=== PATIENT | male | born 1965 | race Caucasian/White ===

== ENCOUNTER 2022-07-28 09:26 | Inpatient (IN) ==
[2022-07-28] MEDS ORDERED: ONDANSETRON 4 MG/2 ML VIAL IV STA (09:47)
[2022-07-28] MEDS ORDERED: MORPHINE 10 MG/1 ML VIAL IV STA (09:47)
[2022-07-28] MEDS ORDERED: ASPIRIN 325 MG TABLET PO STA (09:47)
[2022-07-28 10:08] LABS: Basophils # 0.1 10*3/uL (0.0-0.2); Basophils % 0.4 % (0.0-0.8); Eosinophils # 0.1 10*3/uL (0.0-0.87); Eosinophils % 0.9 % (0.00-10.9); Hematocrit 49.3 VOL% (42.0-52.0); Hemoglobin 17.6 GM/DL (14.0-18.0); Immature Granulocytes % 0.4 %; Immature Granulocytes Absolute 0.07 #; Lymphocytes # 2.5 10*3/uL (1.4-4.0); Lymphocytes % 15.3 % (21.2-54.2); Mean Corpuscular HGB Conc 35.7 GM/DL (32-36); Mean Platelet Volume 8.3 FL (9.6-12.0); Monocytes # 1.2 10*3/uL (0.11-0.8); Monocytes % 7.5 % (1.7-12.7); Neutrophils % 75.5 % (38.7-73.9); Platelet Count 338 T/CUMM (130-400); Red Blood Count 5.48 MC/CUMM (3.8-5.5); Red Cell Distribution Width 11.8 % (9.3-17.3)
[2022-07-28] MEDS ORDERED: MORPHINE 2 MG/1 ML SYRINGE ONE (10:23)
[2022-07-28 10:28] LABS: Albumin 4.2 G/DL (3.4-5.0); Bilirubin,Total 1.1 MG/DL (0.20-1.00); Calcium 9.8 MG/DL (8.5-10.1); Osmolality,Calculated 274.8 MOS/KG (273-304); Potassium 3.5 MMOL/L (3.5-5.1); Total Protein 7.5 G/DL (6.4-8.2)
[2022-07-28] MEDS ORDERED: SODIUM CHLORIDE 0.9% 1,000 ML IV STA ×2 (11:11→13:00)
[2022-07-28] MEDS ORDERED: HYDROmorphone 1 MG/1 ML SYRINGE ONE (11:42)
[2022-07-28] MEDS ORDERED: DEXTROSE 10% 250 ML BAG IV PRN (11:55)
[2022-07-28] MEDS ORDERED: GLUCAGON 1 MG VIAL IM PRN (11:55)
[2022-07-28] MEDS ORDERED: busPIRone 10 MG TABLET PO PRN (12:17)
[2022-07-28] MEDS ORDERED: HYDROmorphone 1 MG/1 ML SYRINGE IV PRN (12:25)
[2022-07-28 12:26] LABS: Risk Ratio 5.41; Thyroid Stimulating Hormone 2.05 uIU/ml (0.358-3.74); VLDL Cholesterol 62.2 MG/DL
[2022-07-28] MEDS ORDERED: diphenhydrAMINE 50 MG/1 ML VIAL IV PRN (12:26)
[2022-07-28] MEDS: HYDROmorphone 1 MG/1 ML SYRINGE IV PRN ×4 (13:23→22:11)
[2022-07-28] MEDS: LACTATED RINGERS 1,000 ML IV SCH ×3 (14:46→23:07)
[2022-07-28] MEDS: ENOXAPARIN 40 MG/0.4 ML SYRINGE SUBCUT SCH (14:46)
[2022-07-28] MEDS: INSULIN LISPRO 100 UNIT/ML SUBCUT SCH ×3 (15:45→23:36)
[2022-07-28] MEDS ORDERED: PNEUMOCOCCAL VACCINE (13 VALENT) 0.5 ML SYRINGE IM ONE (16:36)
[2022-07-28] MEDS: ONDANSETRON 4 MG/2 ML VIAL IV PRN (16:50)
[2022-07-28] MEDS ORDERED: NALOXONE 0.4 MG/ML VIAL IV PRN (18:02)
[2022-07-28] MEDS ORDERED: PROMETHAZINE 25 MG/1 ML VIAL IM PRN (18:34)
[2022-07-28] MEDS: cefTRIAXone 2,000 MG in SODIUM CHLORIDE 0.9% 100 ML IV SCH (19:58)
[2022-07-29] MEDS: LACTATED RINGERS 1,000 ML IV SCH ×8 (02:18→23:40)
[2022-07-29 02:59] LABS: Basophils % 0.1 % (0.0-0.8); Hematocrit 48.6 VOL% (42.0-52.0); Immature Granulocytes % 0.5 %; Immature Granulocytes Absolute 0.08 #; Lymphocytes # 0.7 10*3/uL (1.4-4.0); Lymphocytes % 4.1 % (21.2-54.2); Mean Corpuscular Volume 92.2 FL (87-102); Mean Platelet Volume 8.3 FL (9.6-12.0); Monocytes # 1.1 10*3/uL (0.11-0.8); Monocytes % 6.4 % (1.7-12.7); Neutrophils % 88.9 % (38.7-73.9); Platelet Count 247 T/CUMM (130-400); Red Blood Count 5.27 MC/CUMM (3.8-5.5); Red Cell Distribution Width 12.4 % (9.3-17.3); White Blood Count 16.4 T/CUMM (4-12)
[2022-07-29 03:19] LABS: Albumin 3.1 G/DL (3.4-5.0); Bilirubin,Total 1.8 MG/DL (0.20-1.00); Calcium 7.7 MG/DL (8.5-10.1); Osmolality,Calculated 273.8 MOS/KG (273-304); Potassium 4.5 MMOL/L (3.5-5.1)
[2022-07-29 03:20] LABS: Lymphocytes 3 % (20-55); Platelet Estimate Adequate; Total Cells Counted 100
[2022-07-29] MEDS: INSULIN LISPRO 100 UNIT/ML SUBCUT SCH ×6 (03:30→19:51)
[2022-07-29] MEDS ORDERED: MAGNESIUM SULF RIDER 2 GM/50 ML PREMIX IV ONE (03:38)
[2022-07-29] MEDS: HYDROmorphone 1 MG/1 ML SYRINGE IV PRN ×8 (03:52→22:48)
[2022-07-29] MEDS ORDERED: GENTAMICIN INJ 80 MG/50 ML PREMIX IV ONE (06:00)
[2022-07-29] MEDS: PANTOPRAZOLE 40 MG VIAL IV SCH (08:05)
[2022-07-29] MEDS ORDERED: hydrALAZINE 20 MG/1 ML VIAL IV PRN ×2 (08:13→08:54)
[2022-07-29] MEDS ORDERED: FLUTICASONE 50 MCG NASAL SPRAY 16 GM BOTTLE BOTH NARES PRN (08:42)
[2022-07-29] MEDS: ASCORBIC ACID 500 MG TABLET PO SCH (08:56)
[2022-07-29] MEDS: MULTIVITAMIN (CENTRUM) TABLET PO SCH (08:56)
[2022-07-29] MEDS: CHOLECALCIFEROL 1,000 UNIT TABLET PO SCH (08:57)
[2022-07-29] MEDS ORDERED: SUPER BEETS PO SCH (09:00)
[2022-07-29] MEDS ORDERED: NON-FORMULARY MEDICATION (Turmeric 400 mg Capsule) PO SCH (09:00)
[2022-07-29] MEDS ORDERED: ZINC GLUCONATE 50 MG TABLET PO SCH (09:00)
[2022-07-29] MEDS: LOSARTAN 50 MG TABLET PO SCH (13:00)
[2022-07-29] MEDS: cefTRIAXone 2,000 MG in SODIUM CHLORIDE 0.9% 100 ML IV SCH (19:50)
[2022-07-29 20:21] LABS: Bacteria,Urine Occasional /HPF (Few); Mucus,Urine Many /LPF (Occasional); RBC,Urine 30-35 /HPF (0-4); Squamous Epithelial Cell,Urine Occasional /HPF (0-10)
[2022-07-29 20:22] LABS: Bilirubin,Urine Negative (Negative); Blood, Urine Small mg/dL (Negative); Glucose,Urine (UA) Negative (Negative); Ketones,Urine Negative (Negative); Nitrite,Urine Negative (Negative); Protein,Urine 100 mg/dL (Negative); Urine Appearance Clear (Clear); Urine Color Dark yellow (Yellow); Urine Specific Gravity >= 1.030 (1.001-1.035); Urine Urobilinogen 0.2 eU/dL (<2.0)
[2022-07-29 20:28] LABS: Barbiturates Screen,Urine Negative (Negative); Benzodiazepines Screen,Urine Negative (Negative); Cannabinoid Screen,Urine Negative (Negative); Opiate Screen,Urine Positive (Negative); Phencyclidine Screen,Urine Negative (Negative)
[2022-07-29] MEDS ORDERED: NEBIVOLOL 10 MG TABLET PO SCH (21:00)
[2022-07-30] MEDS: INSULIN LISPRO 100 UNIT/ML SUBCUT SCH ×6 (00:04→20:14)
[2022-07-30] MEDS: HYDROmorphone 1 MG/1 ML SYRINGE IV PRN ×3 (00:57→06:25)
[2022-07-30] MEDS: LACTATED RINGERS 1,000 ML IV SCH ×6 (03:55→19:55)
[2022-07-30 06:06] LABS: Basophils % 0.1 % (0.0-0.8); Eosinophils % 0.1 % (0.00-10.9); Hematocrit 42.6 VOL% (42.0-52.0); Hemoglobin 14.5 GM/DL (14.0-18.0); Immature Granulocytes % 0.6 %; Immature Granulocytes Absolute 0.11 #; Lymphocytes % 5.2 % (21.2-54.2); Mean Corpuscular Volume 94.5 FL (87-102); Mean Platelet Volume 8.4 FL (9.6-12.0); Monocytes # 1.2 10*3/uL (0.11-0.8); Monocytes % 6.1 % (1.7-12.7); Neutrophils % 87.9 % (38.7-73.9); Platelet Count 198 T/CUMM (130-400); Red Blood Count 4.51 MC/CUMM (3.8-5.5); Red Cell Distribution Width 12.6 % (9.3-17.3); White Blood Count 18.7 T/CUMM (4-12)
[2022-07-30 06:19] LABS: INR 1.3
[2022-07-30 06:22] LABS: Albumin 2.3 G/DL (3.4-5.0); Bilirubin,Total 3.1 MG/DL (0.20-1.00); Calcium 6.3 MG/DL (8.5-10.1); Potassium 4.1 MMOL/L (3.5-5.1); Total Protein 5.4 G/DL (6.4-8.2)
[2022-07-30] MEDS ORDERED: INDOMETHACIN SUPP 50 MG SUPP RECTAL ONE ×2 (06:30→08:00)
[2022-07-30] MEDS ORDERED: MIDAZOLAM 2 MG/2 ML VIAL ONE (06:39)
[2022-07-30] MEDS ORDERED: ROCURONIUM 50 MG/5 ML VIAL IV ONE (06:39)
[2022-07-30] MEDS ORDERED: fentaNYL 100 MCG/2 ML VIAL ONE ×2 (06:39→08:07)
[2022-07-30] MEDS ORDERED: propofoL 200 MG/20 ML VIAL IV ONE (06:39)
[2022-07-30] MEDS ORDERED: SUCCINYLCHOLINE 200 MG/10 ML VIAL ONE (06:39)
[2022-07-30] MEDS ORDERED: LIDOCAINE 2% 5 ML VIAL ONE (06:39)
[2022-07-30] MEDS ORDERED: ONDANSETRON 4 MG/2 ML VIAL ONE (07:18)
[2022-07-30] MEDS ORDERED: ePHEDrine 50 MG/ML VIAL ONE (08:16)
[2022-07-30] MEDS ORDERED: PHENYLEPHRINE 10 MG/1 ML VIAL IV ONE (08:33)
[2022-07-30] MEDS ORDERED: NEOSTIGMINE 10 MG/10 ML VIAL ONE (08:59)
[2022-07-30] MEDS ORDERED: GLYCOPYRROLATE 0.4 MG/2 ML VIAL ONE (08:59)
[2022-07-30] MEDS ORDERED: SEVOFLURANE 1 UNIT/15 MINUTE INH ONE (09:22)
[2022-07-30] MEDS ORDERED: SODIUM CHLORIDE 0.9% 250 ML IV ONE (09:22)
[2022-07-30] MEDS ORDERED: DEXAMETHASONE 4 MG/1 ML VIAL ONE (09:22)
[2022-07-30 11:48] LABS: Risk Ratio 4.76; VLDL Cholesterol 16.8 MG/DL
[2022-07-30] MEDS: PANTOPRAZOLE 40 MG VIAL IV SCH (12:58)
[2022-07-30] MEDS: LOSARTAN 50 MG TABLET PO SCH (12:58)
[2022-07-30] MEDS: OMEGA 3 ACID ETHYL ESTERS 1 GM CAPSULE PO SCH ×2 (12:58→20:19)
[2022-07-30] MEDS: cefTRIAXone 2,000 MG in SODIUM CHLORIDE 0.9% 100 ML IV SCH (20:19)
[2022-07-31] MEDS: LACTATED RINGERS 1,000 ML IV SCH ×4 (00:02→14:49)
[2022-07-31] MEDS: INSULIN LISPRO 100 UNIT/ML SUBCUT SCH ×6 (00:02→20:00)
[2022-07-31 06:12] LABS: Basophils % 0.1 % (0.0-0.8); Hemoglobin 12.3 GM/DL (14.0-18.0); Immature Granulocytes % 0.4 %; Immature Granulocytes Absolute 0.05 #; Lymphocytes # 0.6 10*3/uL (1.4-4.0); Lymphocytes % 4.5 % (21.2-54.2); Mean Corpuscular HGB Conc 34.2 GM/DL (32-36); Mean Corpuscular Volume 95.5 FL (87-102); Mean Platelet Volume 8.6 FL (9.6-12.0); Monocytes # 0.7 10*3/uL (0.11-0.8); Monocytes % 5.7 % (1.7-12.7); Neutrophils % 89.3 % (38.7-73.9); Platelet Count 162 T/CUMM (130-400); Red Blood Count 3.77 MC/CUMM (3.8-5.5); Red Cell Distribution Width 12.5 % (9.3-17.3); White Blood Count 12.2 T/CUMM (4-12)
[2022-07-31 07:41] LABS: Calcium 6.2 MG/DL (8.5-10.1); Osmolality,Calculated 270.1 MOS/KG (273-304); Potassium 3.8 MMOL/L (3.5-5.1)
[2022-07-31 07:45] LABS: Lymphocytes 5 % (20-55)
[2022-07-31 07:46] LABS: Platelet Estimate Normal; Total Cells Counted 100
[2022-07-31 08:24] LABS: Albumin 2.4 G/DL (3.4-5.0); Bilirubin,Direct 0.31 MG/DL (0.0-0.20); Bilirubin,Indirect 2.6 MG/DL (0.0-1.0); Bilirubin,Total 2.9 MG/DL (0.20-1.00); Total Protein 5.7 G/DL (6.4-8.2)
[2022-07-31] MEDS: LOSARTAN 50 MG TABLET PO SCH (08:46)
[2022-07-31] MEDS: OMEGA 3 ACID ETHYL ESTERS 1 GM CAPSULE PO SCH ×2 (08:46→21:00)
[2022-07-31] MEDS: PANTOPRAZOLE 40 MG VIAL IV SCH (08:46)
[2022-07-31] MEDS: ENOXAPARIN 40 MG/0.4 ML SYRINGE SUBCUT SCH (11:46)
[2022-07-31] MEDS: cefTRIAXone 2,000 MG in SODIUM CHLORIDE 0.9% 100 ML IV SCH (19:55)
[2022-08-01] MEDS: INSULIN LISPRO 100 UNIT/ML SUBCUT SCH ×6 (00:03→19:54)
[2022-08-01 06:58] LABS: Albumin 2.4 G/DL (3.4-5.0); Bilirubin,Total 2.7 MG/DL (0.20-1.00); Calcium 6.5 MG/DL (8.5-10.1); Osmolality,Calculated 260.7 MOS/KG (273-304); Potassium 3.7 MMOL/L (3.5-5.1); Total Protein 5.7 G/DL (6.4-8.2)
[2022-08-01 07:37] LABS: Basophils % 0.2 % (0.0-0.8); Hematocrit 34.3 VOL% (42.0-52.0); Hemoglobin 11.8 GM/DL (14.0-18.0); Immature Granulocytes % 0.6 %; Immature Granulocytes Absolute 0.08 #; Lymphocytes # 0.6 10*3/uL (1.4-4.0); Lymphocytes % 4.9 % (21.2-54.2); Mean Corpuscular HGB Conc 34.4 GM/DL (32-36); Mean Platelet Volume 8.7 FL (9.6-12.0); Monocytes # 1.1 10*3/uL (0.11-0.8); Monocytes % 8.7 % (1.7-12.7); Neutrophils % 85.6 % (38.7-73.9); Platelet Count 221 T/CUMM (130-400); Red Blood Count 3.61 MC/CUMM (3.8-5.5); Red Cell Distribution Width 12.3 % (9.3-17.3); White Blood Count 12.4 T/CUMM (4-12)
[2022-08-01 08:08] LABS: Anisocytosis 1+; Band Neutrophils 1 % (0-10); Platelet Estimate Normal; Polychromasia Slight; Total Cells Counted 100
[2022-08-01] MEDS: ASCORBIC ACID 500 MG TABLET PO SCH (09:21)
[2022-08-01] MEDS: CHOLECALCIFEROL 1,000 UNIT TABLET PO SCH (09:21)
[2022-08-01] MEDS: MULTIVITAMIN (CENTRUM) TABLET PO SCH (09:21)
[2022-08-01] MEDS: OMEGA 3 ACID ETHYL ESTERS 1 GM CAPSULE PO SCH ×2 (09:21→21:51)
[2022-08-01] MEDS: LOSARTAN 50 MG TABLET PO SCH (09:21)
[2022-08-01] MEDS: PANTOPRAZOLE 40 MG VIAL IV SCH (09:21)
[2022-08-01] MEDS: ENOXAPARIN 40 MG/0.4 ML SYRINGE SUBCUT SCH (12:01)
[2022-08-01] MEDS: cefTRIAXone 2,000 MG in SODIUM CHLORIDE 0.9% 100 ML IV SCH (21:51)
[2022-08-01] MEDS: MAGNESIUM HYDROXIDE SUSP 30 ML UDCUP PO SCH (21:51)
[2022-08-02] MEDS: INSULIN LISPRO 100 UNIT/ML SUBCUT SCH ×6 (00:11→19:58)
[2022-08-02] MEDS: MAGNESIUM HYDROXIDE SUSP 30 ML UDCUP PO SCH ×2 (02:01→09:34)
[2022-08-02 05:53] LABS: Basophils % 0.2 % (0.0-0.8); Eosinophils % 0.1 % (0.00-10.9); Hematocrit 34.1 VOL% (42.0-52.0); Hemoglobin 11.8 GM/DL (14.0-18.0); Immature Granulocytes % 1.3 %; Immature Granulocytes Absolute 0.18 #; Lymphocytes # 0.6 10*3/uL (1.4-4.0); Lymphocytes % 4.4 % (21.2-54.2); Mean Corpuscular HGB Conc 34.6 GM/DL (32-36); Mean Corpuscular Volume 92.7 FL (87-102); Mean Platelet Volume 8.4 FL (9.6-12.0); Monocytes # 1.3 10*3/uL (0.11-0.8); Monocytes % 9.4 % (1.7-12.7); Neutrophils % 84.6 % (38.7-73.9); Platelet Count 230 T/CUMM (130-400); Red Blood Count 3.68 MC/CUMM (3.8-5.5); Red Cell Distribution Width 12.3 % (9.3-17.3); White Blood Count 14.2 T/CUMM (4-12)
[2022-08-02 06:09] LABS: Albumin 2.4 G/DL (3.4-5.0); Bilirubin,Total 2.4 MG/DL (0.20-1.00); Calcium 7.1 MG/DL (8.5-10.1); Osmolality,Calculated 253.2 MOS/KG (273-304); Potassium 3.3 MMOL/L (3.5-5.1); Total Protein 6.1 G/DL (6.4-8.2)
[2022-08-02 06:13] LABS: Band Neutrophils 1 % (0-10); Lymphocytes 2 % (20-55); Platelet Estimate Adequate; Total Cells Counted 100
[2022-08-02] MEDS ORDERED: POTASSIUM CHLORIDE 20 MEQ TABLET PO ONE (07:44)
[2022-08-02] MEDS: LOSARTAN 50 MG TABLET PO SCH (08:44)
[2022-08-02] MEDS: OMEGA 3 ACID ETHYL ESTERS 1 GM CAPSULE PO SCH ×2 (08:44→20:31)
[2022-08-02] MEDS: PANTOPRAZOLE 40 MG VIAL IV SCH (08:44)
[2022-08-02] MEDS: ASCORBIC ACID 500 MG TABLET PO SCH (08:44)
[2022-08-02] MEDS: MULTIVITAMIN (CENTRUM) TABLET PO SCH (08:44)
[2022-08-02] MEDS: CHOLECALCIFEROL 1,000 UNIT TABLET PO SCH (08:44)
[2022-08-02] MEDS ORDERED: chlorproMAZINE INJ 25 MG in SODIUM CHLORIDE 0.9% 100 ML IV PRN (09:10)
[2022-08-02] MEDS ORDERED: chlorproMAZINE 25 MG/1 ML AMP IM PRN (09:13)
[2022-08-02] MEDS ORDERED: SODIUM CHLORIDE 0.9% 500 ML IV ONE (09:14)
[2022-08-02] MEDS: POLYETHYLENE GLYCOL POWDER 17 GM PACK PO SCH (12:15)
[2022-08-02] MEDS ORDERED: SODIUM PHOSPHATE ENEMA 133 ML BOTTLE RECTAL ONE (13:00)
[2022-08-02] MEDS: cefTRIAXone 2,000 MG in SODIUM CHLORIDE 0.9% 100 ML IV SCH (21:08)
[2022-08-02] MEDS: ENOXAPARIN 40 MG/0.4 ML SYRINGE SUBCUT SCH (21:11)
[2022-08-03] MEDS: INSULIN LISPRO 100 UNIT/ML SUBCUT SCH ×4 (00:05→12:17)
[2022-08-03] MEDS: PANTOPRAZOLE 40 MG TABLET PO SCH (06:01)
[2022-08-03 06:20] LABS: Basophils % 0.3 % (0.0-0.8); Eosinophils % 0.2 % (0.00-10.9); Hematocrit 33.3 VOL% (42.0-52.0); Hemoglobin 11.4 GM/DL (14.0-18.0); Immature Granulocytes % 3.8 %; Immature Granulocytes Absolute 0.59 #; Lymphocytes # 0.6 10*3/uL (1.4-4.0); Lymphocytes % 4.1 % (21.2-54.2); Mean Corpuscular HGB Conc 34.2 GM/DL (32-36); Mean Corpuscular Volume 93.3 FL (87-102); Mean Platelet Volume 8.6 FL (9.6-12.0); Monocytes # 1.5 10*3/uL (0.11-0.8); Monocytes % 9.5 % (1.7-12.7); Neutrophils % 82.1 % (38.7-73.9); Platelet Count 234 T/CUMM (130-400); Red Blood Count 3.57 MC/CUMM (3.8-5.5); Red Cell Distribution Width 12.3 % (9.3-17.3); White Blood Count 15.5 T/CUMM (4-12)
[2022-08-03 06:37] LABS: Albumin 2.3 G/DL (3.4-5.0); Calcium 7.2 MG/DL (8.5-10.1); Osmolality,Calculated 254.1 MOS/KG (273-304); Potassium 4.1 MMOL/L (3.5-5.1); Total Protein 5.8 G/DL (6.4-8.2)
[2022-08-03 06:39] LABS: Band Neutrophils 4 % (0-10); Lymphocytes 1 % (20-55); Total Cells Counted 100
[2022-08-03 06:40] LABS: Platelet Estimate Adequate
[2022-08-03] MEDS: SODIUM CHLORIDE 0.9% 1,000 ML IV SCH ×2 (09:38→23:30)
[2022-08-03] MEDS: LOSARTAN 50 MG TABLET PO SCH (09:38)
[2022-08-03] MEDS: MULTIVITAMIN (CENTRUM) TABLET PO SCH (09:38)
[2022-08-03] MEDS: OMEGA 3 ACID ETHYL ESTERS 1 GM CAPSULE PO SCH ×2 (09:39→20:52)
[2022-08-03] MEDS: ASCORBIC ACID 500 MG TABLET PO SCH (09:39)
[2022-08-03] MEDS: CHOLECALCIFEROL 1,000 UNIT TABLET PO SCH (09:39)
[2022-08-03] MEDS: POLYETHYLENE GLYCOL POWDER 17 GM PACK PO SCH (09:39)
[2022-08-03] MEDS: ENOXAPARIN 40 MG/0.4 ML SYRINGE SUBCUT SCH (20:53)
[2022-08-03] MEDS: cefTRIAXone 2,000 MG in SODIUM CHLORIDE 0.9% 100 ML IV SCH (21:00)
[2022-08-04] MEDS: PANTOPRAZOLE 40 MG TABLET PO SCH (05:42)
[2022-08-04] MEDS ORDERED: TISSUE ADHESIVE 1 EACH APPLICATOR TOP ONE (06:16)
[2022-08-04] MEDS ORDERED: SEVOFLURANE 1 UNIT/15 MINUTE INH ONE (06:19)
[2022-08-04] MEDS ORDERED: ROCURONIUM 50 MG/5 ML VIAL IV ONE ×2 (06:19→09:01)
[2022-08-04] MEDS ORDERED: fentaNYL 100 MCG/2 ML VIAL ONE ×4 (06:19→10:19)
[2022-08-04] MEDS ORDERED: MIDAZOLAM 2 MG/2 ML VIAL ONE (06:19)
[2022-08-04] MEDS ORDERED: LIDOCAINE 2% 5 ML VIAL ONE (06:19)
[2022-08-04] MEDS ORDERED: propofoL 200 MG/20 ML VIAL IV ONE (06:19)
[2022-08-04] MEDS ORDERED: PHENYLEPHRINE 1 MG/10 ML SYRINGE IV ONE ×3 (06:19→07:46)
[2022-08-04] MEDS ORDERED: ONDANSETRON 4 MG/2 ML VIAL ONE (06:19)
[2022-08-04] MEDS ORDERED: INDOCYANINE GREEN 25 MG VIAL IV ONE (06:30)
[2022-08-04 06:49] LABS: Basophils # 0.1 10*3/uL (0.0-0.2); Basophils % 0.5 % (0.0-0.8); Eosinophils # 0.1 10*3/uL (0.0-0.87); Eosinophils % 0.2 % (0.00-10.9); Hematocrit 35.8 VOL% (42.0-52.0); Hemoglobin 12.6 GM/DL (14.0-18.0); Immature Granulocytes % 5.1 %; Immature Granulocytes Absolute 1.22 #; Lymphocytes # 0.8 10*3/uL (1.4-4.0); Lymphocytes % 3.3 % (21.2-54.2); Mean Corpuscular HGB Conc 35.2 GM/DL (32-36); Mean Corpuscular Volume 90.9 FL (87-102); Mean Platelet Volume 8.6 FL (9.6-12.0); Monocytes # 1.8 10*3/uL (0.11-0.8); Monocytes % 7.6 % (1.7-12.7); Neutrophils % 83.3 % (38.7-73.9); Platelet Count 331 T/CUMM (130-400); Red Blood Count 3.94 MC/CUMM (3.8-5.5); Red Cell Distribution Width 12.4 % (9.3-17.3); White Blood Count 23.7 T/CUMM (4-12)
[2022-08-04] MEDS ORDERED: SODIUM CHLORIDE 0.9% 1,000 ML IV SCH (07:00)
[2022-08-04] MEDS ORDERED: LACTATED RINGERS 1,000 ML IV SCH (07:00)
[2022-08-04 07:05] LABS: Calcium 7.4 MG/DL (8.5-10.1); Osmolality,Calculated 254.1 MOS/KG (273-304); Potassium 3.3 MMOL/L (3.5-5.1)
[2022-08-04 07:13] LABS: Band Neutrophils 1 % (0-10); Lymphocytes 1 % (20-55); Platelet Estimate Adequate; Total Cells Counted 100
[2022-08-04] MEDS ORDERED: SODIUM CHLORIDE 0.9% 250 ML IV ONE (07:53)
[2022-08-04] MEDS ORDERED: PHENYLEPHRINE 10 MG/1 ML VIAL IV ONE ×2 (07:53→09:50)
[2022-08-04] MEDS ORDERED: ePHEDrine 50 MG/ML VIAL ONE (08:07)
[2022-08-04] MEDS ORDERED: ALBUMIN 5% 12.5 GM/250 ML VIAL IV ONE (09:34)
[2022-08-04] MEDS ORDERED: SODIUM CHLORIDE 0.9% 1,000 ML IV ONE (09:50)
[2022-08-04] MEDS ORDERED: SODIUM CHLORIDE 0.9% 100 ML IV ONE (09:50)
[2022-08-04] MEDS ORDERED: SUGAMMADEX 200 MG/2 ML VIAL IV ONE (10:08)
[2022-08-04] MEDS ORDERED: HYDROmorphone 1 MG/1 ML SYRINGE ONE (10:16)
[2022-08-04] MEDS ORDERED: oxyCODONE/ACETAMINOPHEN 5-325 MG TABLET PO PRN (11:21)
[2022-08-04] MEDS: SODIUM CHLORIDE 0.9% 1,000 ML IV SCH (12:08)
[2022-08-04] MEDS: ONDANSETRON 4 MG/2 ML VIAL IV PRN ×2 (12:18→17:37)
[2022-08-04] MEDS: ASCORBIC ACID 500 MG TABLET PO SCH (12:18)
[2022-08-04] MEDS: OMEGA 3 ACID ETHYL ESTERS 1 GM CAPSULE PO SCH ×2 (12:18→21:13)
[2022-08-04] MEDS: CHOLECALCIFEROL 1,000 UNIT TABLET PO SCH (12:19)
[2022-08-04] MEDS: LOSARTAN 50 MG TABLET PO SCH (12:19)
[2022-08-04] MEDS: MULTIVITAMIN (CENTRUM) TABLET PO SCH (12:19)
[2022-08-04] MEDS: POLYETHYLENE GLYCOL POWDER 17 GM PACK PO SCH (12:20)
[2022-08-04] MEDS: KETOROLAC 15 MG/1 ML VIAL IV SCH ×3 (12:20→23:33)
[2022-08-04] MEDS: POTASSIUM CHLORIDE RIDER 10 MEQ/100 ML PREMIX IV SCH ×4 (14:08→16:28)
[2022-08-04] MEDS: cefTRIAXone 2,000 MG in SODIUM CHLORIDE 0.9% 100 ML IV SCH (21:13)
[2022-08-04] MEDS: ENOXAPARIN 40 MG/0.4 ML SYRINGE SUBCUT SCH (21:14)
[2022-08-04] MEDS: ACETAMINOPHEN 325 MG TABLET PO PRN (23:36)
[2022-08-05] MEDS: SODIUM CHLORIDE 0.9% 1,000 ML IV SCH ×2 (05:11→20:26)
[2022-08-05] MEDS: PANTOPRAZOLE 40 MG TABLET PO SCH (05:32)
[2022-08-05] MEDS: KETOROLAC 15 MG/1 ML VIAL IV SCH ×4 (05:35→20:28)
[2022-08-05 05:48] LABS: Basophils # 0.1 10*3/uL (0.0-0.2); Basophils % 0.4 % (0.0-0.8); Eosinophils # 0.1 10*3/uL (0.0-0.87); Eosinophils % 0.4 % (0.00-10.9); Hematocrit 30.2 VOL% (42.0-52.0); Hemoglobin 10.2 GM/DL (14.0-18.0); Immature Granulocytes % 4.8 %; Immature Granulocytes Absolute 1.08 #; Lymphocytes # 0.6 10*3/uL (1.4-4.0); Lymphocytes % 2.5 % (21.2-54.2); Mean Corpuscular HGB Conc 33.8 GM/DL (32-36); Mean Corpuscular Volume 94.7 FL (87-102); Mean Platelet Volume 8.7 FL (9.6-12.0); Monocytes # 1.4 10*3/uL (0.11-0.8); Monocytes % 6.3 % (1.7-12.7); Neutrophils % 85.6 % (38.7-73.9); Platelet Count 260 T/CUMM (130-400); Red Blood Count 3.19 MC/CUMM (3.8-5.5); Red Cell Distribution Width 12.7 % (9.3-17.3); White Blood Count 22.4 T/CUMM (4-12)
[2022-08-05 06:03] LABS: Calcium 6.9 MG/DL (8.5-10.1); Osmolality,Calculated 265.2 MOS/KG (273-304); Potassium 3.2 MMOL/L (3.5-5.1)
[2022-08-05 06:26] LABS: Band Neutrophils 2 % (0-10); Eosinophils 2 % (0-10); Hypochromia Slight; Lymphocytes 1 % (20-55); Microcytosis Slight; Platelet Estimate Adequate; Total Cells Counted 100
[2022-08-05] MEDS ORDERED: POTASSIUM CHLORIDE 20 MEQ TABLET PO ONE (09:00)
[2022-08-05] MEDS: ONDANSETRON 4 MG/2 ML VIAL IV PRN ×2 (09:25→15:14)
[2022-08-05] MEDS: ASCORBIC ACID 500 MG TABLET PO SCH (09:25)
[2022-08-05] MEDS: OMEGA 3 ACID ETHYL ESTERS 1 GM CAPSULE PO SCH ×2 (09:25→20:28)
[2022-08-05] MEDS: LOSARTAN 50 MG TABLET PO SCH (09:25)
[2022-08-05] MEDS: CHOLECALCIFEROL 1,000 UNIT TABLET PO SCH (09:26)
[2022-08-05] MEDS: MULTIVITAMIN (CENTRUM) TABLET PO SCH (09:26)
[2022-08-05] MEDS: POLYETHYLENE GLYCOL POWDER 17 GM PACK PO SCH (09:33)
[2022-08-05] MEDS: PIPERACILLIN/TAZOBACTAM 3,375 MG in SODIUM CHLORIDE 0.9% 100 ML IV SCH ×2 (09:33→16:58)
[2022-08-05] MEDS ORDERED: FUROSEMIDE 20 MG/2 ML VIAL IV ONE (14:00)
[2022-08-05] MEDS: ACETAMINOPHEN 325 MG TABLET PO PRN (20:27)
[2022-08-05] MEDS: ENOXAPARIN 40 MG/0.4 ML SYRINGE SUBCUT SCH (20:28)
[2022-08-06] MEDS: PIPERACILLIN/TAZOBACTAM 3,375 MG in SODIUM CHLORIDE 0.9% 100 ML IV SCH ×3 (02:12→16:15)
[2022-08-06] MEDS: KETOROLAC 15 MG/1 ML VIAL IV SCH ×4 (02:12→20:49)
[2022-08-06 05:30] LABS: Basophils # 0.1 10*3/uL (0.0-0.2); Basophils % 0.3 % (0.0-0.8); Eosinophils # 0.1 10*3/uL (0.0-0.87); Eosinophils % 0.7 % (0.00-10.9); Hematocrit 29.4 VOL% (42.0-52.0); Hemoglobin 9.8 GM/DL (14.0-18.0); Immature Granulocytes % 5.8 %; Immature Granulocytes Absolute 1.18 #; Lymphocytes # 0.8 10*3/uL (1.4-4.0); Lymphocytes % 3.8 % (21.2-54.2); Mean Corpuscular HGB Conc 33.3 GM/DL (32-36); Mean Corpuscular Volume 93.9 FL (87-102); Mean Platelet Volume 8.6 FL (9.6-12.0); Monocytes # 1.5 10*3/uL (0.11-0.8); Monocytes % 7.1 % (1.7-12.7); Neutrophils % 82.3 % (38.7-73.9); Platelet Count 291 T/CUMM (130-400); Red Blood Count 3.13 MC/CUMM (3.8-5.5); Red Cell Distribution Width 12.7 % (9.3-17.3); White Blood Count 20.4 T/CUMM (4-12)
[2022-08-06 05:53] LABS: Albumin 1.7 G/DL (3.4-5.0); Bilirubin,Total 1.2 MG/DL (0.20-1.00); Calcium 7.1 MG/DL (8.5-10.1); Osmolality,Calculated 263.4 MOS/KG (273-304); Potassium 3.2 MMOL/L (3.5-5.1); Total Protein 4.9 G/DL (6.4-8.2)
[2022-08-06 06:09] LABS: Band Neutrophils 3 % (0-10); Eosinophils 1 % (0-10); Lymphocytes 3 % (20-55); Total Cells Counted 100
[2022-08-06 06:10] LABS: Hypochromia Slight; Microcytosis Slight; Platelet Estimate Normal
[2022-08-06] MEDS: PANTOPRAZOLE 40 MG TABLET PO SCH (06:15)
[2022-08-06] MEDS: ONDANSETRON 4 MG/2 ML VIAL IV PRN (06:19)
[2022-08-06] MEDS ORDERED: POTASSIUM CHLORIDE 20 MEQ TABLET PO ONE (08:05)
[2022-08-06] MEDS: CHOLECALCIFEROL 1,000 UNIT TABLET PO SCH (08:32)
[2022-08-06] MEDS: ASCORBIC ACID 500 MG TABLET PO SCH (08:32)
[2022-08-06] MEDS: LOSARTAN 50 MG TABLET PO SCH (08:32)
[2022-08-06] MEDS: MULTIVITAMIN (CENTRUM) TABLET PO SCH (08:32)
[2022-08-06] MEDS: POLYETHYLENE GLYCOL POWDER 17 GM PACK PO SCH (08:33)
[2022-08-06] MEDS: SODIUM CHLORIDE 0.9% 1,000 ML IV SCH (08:33)
[2022-08-06] MEDS: OMEGA 3 ACID ETHYL ESTERS 1 GM CAPSULE PO SCH ×2 (08:36→20:48)
[2022-08-06] MEDS ORDERED: FUROSEMIDE 40 MG/4 ML VIAL IV ONE (13:30)
[2022-08-06] MEDS: ENOXAPARIN 40 MG/0.4 ML SYRINGE SUBCUT SCH (20:48)
[2022-08-06] MEDS: ACETAMINOPHEN 325 MG TABLET PO PRN (20:48)
[2022-08-07] MEDS: KETOROLAC 15 MG/1 ML VIAL IV SCH ×4 (02:19→21:36)
[2022-08-07] MEDS: PIPERACILLIN/TAZOBACTAM 3,375 MG in SODIUM CHLORIDE 0.9% 100 ML IV SCH ×3 (02:20→16:29)
[2022-08-07 05:48] LABS: Basophils # 0.1 10*3/uL (0.0-0.2); Basophils % 0.3 % (0.0-0.8); Eosinophils # 0.1 10*3/uL (0.0-0.87); Eosinophils % 0.6 % (0.00-10.9); Hematocrit 30.7 VOL% (42.0-52.0); Hemoglobin 10.3 GM/DL (14.0-18.0); Immature Granulocytes % 6.2 %; Immature Granulocytes Absolute 1.15 #; Lymphocytes # 0.9 10*3/uL (1.4-4.0); Lymphocytes % 4.7 % (21.2-54.2); Mean Corpuscular HGB Conc 33.6 GM/DL (32-36); Mean Corpuscular Volume 95.3 FL (87-102); Mean Platelet Volume 8.5 FL (9.6-12.0); Monocytes # 1.2 10*3/uL (0.11-0.8); Monocytes % 6.6 % (1.7-12.7); Neutrophils % 81.6 % (38.7-73.9); Platelet Count 336 T/CUMM (130-400); Red Blood Count 3.22 MC/CUMM (3.8-5.5); Red Cell Distribution Width 12.5 % (9.3-17.3); White Blood Count 18.5 T/CUMM (4-12)
[2022-08-07] MEDS: PANTOPRAZOLE 40 MG TABLET PO SCH (05:57)
[2022-08-07 06:09] LABS: Calcium 7.3 MG/DL (8.5-10.1); Osmolality,Calculated 267.1 MOS/KG (273-304); Potassium 3.7 MMOL/L (3.5-5.1)
[2022-08-07 06:14] LABS: Albumin 1.8 G/DL (3.4-5.0); Bilirubin,Total 1.1 MG/DL (0.20-1.00); Calcium 7.3 MG/DL (8.5-10.1); Osmolality,Calculated 265.2 MOS/KG (273-304); Potassium 3.6 MMOL/L (3.5-5.1); Total Protein 5.3 G/DL (6.4-8.2)
[2022-08-07 07:22] LABS: Lymphocytes 3 % (20-55); Total Cells Counted 100
[2022-08-07 07:23] LABS: Hypochromia Slight; Microcytosis Slight; Platelet Estimate Adequate
[2022-08-07] MEDS: MULTIVITAMIN (CENTRUM) TABLET PO SCH (09:34)
[2022-08-07] MEDS: LOSARTAN 50 MG TABLET PO SCH (09:35)
[2022-08-07] MEDS: CHOLECALCIFEROL 1,000 UNIT TABLET PO SCH (09:36)
[2022-08-07] MEDS: ASCORBIC ACID 500 MG TABLET PO SCH (09:36)
[2022-08-07] MEDS: POLYETHYLENE GLYCOL POWDER 17 GM PACK PO SCH (09:36)
[2022-08-07] MEDS: OMEGA 3 ACID ETHYL ESTERS 1 GM CAPSULE PO SCH ×2 (09:36→21:36)
[2022-08-07] MEDS: ENOXAPARIN 40 MG/0.4 ML SYRINGE SUBCUT SCH (21:36)
[2022-08-08] MEDS: PIPERACILLIN/TAZOBACTAM 3,375 MG in SODIUM CHLORIDE 0.9% 100 ML IV SCH ×2 (01:09→09:32)
[2022-08-08] MEDS: KETOROLAC 15 MG/1 ML VIAL IV SCH ×2 (03:29→09:31)
[2022-08-08] MEDS: PANTOPRAZOLE 40 MG TABLET PO SCH (05:41)
[2022-08-08 06:29] LABS: Basophils % 0.2 % (0.0-0.8); Eosinophils # 0.1 10*3/uL (0.0-0.87); Eosinophils % 0.6 % (0.00-10.9); Hemoglobin 9.7 GM/DL (14.0-18.0); Immature Granulocytes % 4.5 %; Immature Granulocytes Absolute 0.72 #; Lymphocytes # 0.8 10*3/uL (1.4-4.0); Lymphocytes % 4.7 % (21.2-54.2); Mean Corpuscular HGB Conc 33.4 GM/DL (32-36); Mean Corpuscular Volume 94.8 FL (87-102); Mean Platelet Volume 8.6 FL (9.6-12.0); Monocytes # 1.3 10*3/uL (0.11-0.8); Platelet Count 325 T/CUMM (130-400); Red Blood Count 3.06 MC/CUMM (3.8-5.5); Red Cell Distribution Width 12.5 % (9.3-17.3)
[2022-08-08 07:00] LABS: Calcium 7.7 MG/DL (8.5-10.1); Osmolality,Calculated 260.5 MOS/KG (273-304); Potassium 3.1 MMOL/L (3.5-5.1)
[2022-08-08 07:18] LABS: Hypochromia Slight; Lymphocytes 2 % (20-55); Microcytosis Slight; Platelet Estimate Adequate; Total Cells Counted 100
[2022-08-08 07:30] LABS: Albumin 1.7 G/DL (3.4-5.0); Calcium 7.4 MG/DL (8.5-10.1); Osmolality,Calculated 260.5 MOS/KG (273-304); Potassium 3.6 MMOL/L (3.5-5.1); Total Protein 4.8 G/DL (6.4-8.2)
[2022-08-08] MEDS ORDERED: POTASSIUM CHLORIDE 20 MEQ TABLET PO ONE (08:02)
[2022-08-08] MEDS: LOSARTAN 50 MG TABLET PO SCH (09:25)
[2022-08-08] MEDS: MULTIVITAMIN (CENTRUM) TABLET PO SCH (09:25)
[2022-08-08] MEDS: ASCORBIC ACID 500 MG TABLET PO SCH (09:25)
[2022-08-08] MEDS: POLYETHYLENE GLYCOL POWDER 17 GM PACK PO SCH (09:26)
[2022-08-08] MEDS: CHOLECALCIFEROL 1,000 UNIT TABLET PO SCH (09:26)
[2022-08-08] MEDS: OMEGA 3 ACID ETHYL ESTERS 1 GM CAPSULE PO SCH (09:32)
[2022-08-08 11:56] VITALS: BP 139/74
== END 2022-08-08 14:20 | disposition home or self-care (01) | DRG 415 ==
LOC: N.ED 09:26 → SUATTDRO 11:53 → N.EDINP 11:53 → N.CC 14:53 → N.5E 08-01 14:19
PROVIDERS: ADMIT Internal Medicine; ATTEND Internal Medicine
PROC: ERCPWSP (ICD-10-PCS; 2022-07-30 07:05)